=== PATIENT | female | born 1995 | race Caucasian/White ===

== ENCOUNTER 2017-08-23 12:58 | Emergency (ER) | payer SELFPAY ==
--- NOTE | 2017-08-23 16:20 | Emergency Department Report ---
Chief Complaint: Abdominal Pain Stated Complaint: 7 WEEKS /SPOTTING - HPI History of Present Illness: 21 yo presents with lower abdominal pain and vaginal spotting. She was referred from OB clinic for evaluation for threatened miscarriage. Estimated due date 04/09/2018. - Exam Vital Signs: Vital Signs 08/23/17 13:18 Temperature 98.7 F Pulse Rate 76 Respiratory 16 Rate Blood Pressure 121/81 O2 Sat by Pulse 100 Oximetry MSE screening note: Focused history and physical exam performed. Due to findings the following was ordered: ED Disposition for MSE Condition: Stable Instructions: Abdominal Pain (ED)
[2017-08-23] MEDS ORDERED: TYLENOL PO ONE (16:25)
[2017-08-23 16:45] LABS: Basophils % (Auto) 0.2 % (0.0-1.8); Hematocrit 45.1 % (30.3-42.9); Hemoglobin 15.1 gm/dl (10.1-14.3); Lymphocytes # (Auto) 1.7 K/mm3 (1.2-5.4); Lymphocytes % (Auto) 13.2 % (13.4-35.0); Mean Corpuscular HGB Conc 34 % (30-34); Mean Corpuscular Hemoglobin 29 pg (28-32); Mean Corpuscular Volume 85 fl (79-97); Monocytes # (Auto) 0.8 K/mm3 (0.0-0.8); Monocytes % (Auto) 6.2 % (0.0-7.3); Platelet Count 244 K/mm3 (140-440); Red Cell Distribution Width 13.2 % (13.2-15.2)
[2017-08-23 16:58] LABS: BUN/Creatinine Ratio 25; Blood Urea Nitrogen 10 mg/dL (7-17); Hemolysis Index 29
--- NOTE | 2017-08-23 18:59 | Emergency Department Report ---
ED Female HPI - General Chief complaint: Abdominal Pain Stated complaint: 7 WEEKS /SPOTTING Time Seen by Provider: 08/23/17 18:45 Source: patient, family, EMS Mode of arrival: Ambulatory Limitations: No Limitations - History of Present Illness Initial comments: Patient presents to emergency room report that she is 7 weeks with complaints of cramping and some spotting 5 days. She denies passing any clots. She does not have any OB follow-up nor did she start care. Denies any vaginal discharge or concern for STDs. Denies any back pain. Denies any urinary burning frequency or urgency. 1 para 0. Last menstrual period was 07/06/2017. Patient says she went to clinic and they verify that she was but she's never had ultrasound. Abdominal pain is 4 out of 10 cramping or pelvic area. No medication taken. She denies any fever or chills. Onset/Timin -: days(s) Location: suprapubic Radiation: non-radiating Severity: mild Severity scale (0 -10): 4 Quality: cramping Consistency: intermittent Improves with: none Worsens with: none Are you Now?: Yes (7 weeks) Last Menstrual Period: 07/06/17 EDC: 04/12/18 Associated Symptoms: vaginal bleeding, abdominal pain. denies: vaginal discharge, nausea/vomiting, fever/chills, headaches, loss of appetite, dysuria, hematuria, rash, seizure, shortness of breath, syncope, weakness - Related Data Sexually active: Yes (with has been) : 1 Para: 0 Previous Rx's Medication Instructions Recorded Last Taken Type Nitrofurantoin Monohyd/M-Cryst 100 mg PO Q12H 7 Days #14 capsule 08/23/17 Unknown Rx [Macrobid 100 mg Capsule] 21/Iron Fu/Folic Acid 1 each PO QDAY 30 Days #30 tablet 08/23/17 Unknown Rx [ Complete Caplet] metroNIDAZOLE [Vandazole GEL] 10 applicator VG QHS 7 Days #7 08/23/17 Unknown Rx gel.[email or web address] Allergies Allergy/AdvReac Type Severity Reaction Status Date / Time No Known Allergies Allergy Verified 08/23/17 13:18 ED Review of Systems ROS: Stated complaint: 7 WEEKS /SPOTTING Other details as noted in HPI Comment: All other systems reviewed and negative Constitutional: no symptoms reported Eyes: denies: eye pain, eye discharge ENT: denies: throat pain Respiratory: no symptoms reported Cardiovascular: denies: chest pain, palpitations, dyspnea on exertion, edema, syncope, paroxysmal nocturnal dyspnea Gastrointestinal: abdominal pain. denies: nausea, vomiting, diarrhea, constipation, hematemesis, melena, hematochezia Genitourinary: hematuria, abnormal menses, other (vaginal spotting). denies: urgency, dysuria, frequency, discharge, dyspareunia Musculoskeletal: denies: back pain, joint swelling, arthralgia, myalgia Skin: denies: rash Neurological: denies: headache, weakness, numbness, paresthesias, confusion, abnormal gait, vertigo ED Past Medical Hx - Past Medical History Previous Medical History?: No - Surgical History Past Surgical History?: No - Family History Family history: no significant - Social History Smoking Status: Never Smoker Substance Use Type: None - Medications Home Medications: Home Medications Medication Instructions Recorded Confirmed Last Taken Type Nitrofurantoin Monohyd/M-Cryst 100 mg PO Q12H 7 Days #14 capsule 08/23/17 Unknown Rx [Macrobid 100 mg Capsule] 21/Iron Fu/Folic Acid 1 each PO QDAY 30 Days #30 tablet 08/23/17 Unknown Rx [ Complete Caplet] metroNIDAZOLE [Vandazole GEL] 10 applicator VG QHS 7 Days #7 08/23/17 Unknown Rx gel.w.[email or web address] ED Physical Exam - General Limitations: No Limitations General appearance: alert, in no apparent distress - Head Head exam: Present: atraumatic, normocephalic, normal inspection - Eye Eye exam: Present: normal appearance, PERRL, EOMI Pupils: Present: normal accommodation - ENT ENT exam: Present: normal exam, normal orophraynx, mucous membranes moist, TM's normal bilaterally (no C-spine tenderness) - Neck Neck exam: Present: normal inspection, full ROM, other. Absent: tenderness, meningismus, lymphadenopathy, thyromegaly - Respiratory Respiratory exam: Present: normal lung sounds bilaterally. Absent: respiratory distress, chest wall tenderness, accessory muscle use - Cardiovascular Cardiovascular Exam: Present: regular rate, normal rhythm, normal heart sounds. Absent: systolic murmur, diastolic murmur - GI/Abdominal GI/Abdominal exam: Present: soft, normal bowel sounds. Absent: distended, tenderness, guarding, rebound, rigid, organomegaly, mass, bruit, pulsatile mass , hernia - External exam: Present: normal external exam. Absent: erythema, swelling, lesions, lacerations, ecchymosis, bleeding Speculum exam: Present: vaginal discharge, cervical discharge, vaginal bleeding. Absent: normal speculum exam, erythema, foreign body, tissue, laceration Bi-manual exam: Present: uterine enlargement. Absent: normal bi-manual exam, cervical motion tendernes, adnexal tenderness, adnexal mass, uterine tenderness - Expanded Exam Expanded Female exam: Absent: vaginal laceration, tissue present in vagina, herpetic lesions, vulvar erythema, vulvar tenderness, foreign body External exam: Present: normal Amniotic fluid: Present: none Speculum exam: Present: cervical OS closed, vaginal bleeding, vaginal discharge - Extremities Exam Extremities exam: Present: normal inspection, full ROM, normal capillary refill , other (no clubbing, cyanosis or edema. +2 pulses to all extremities and no neurovascular compromise). Absent: tenderness, pedal edema, joint swelling, calf tenderness - Back Exam Back exam: Present: normal inspection, full ROM, other (ambulates without any difficulties). Absent: tenderness, CVA tenderness (R), CVA tenderness (L), muscle spasm, paraspinal tenderness, vertebral tenderness, rash noted - Neurological Exam Neurological exam: Present: alert, oriented X3, normal gait, reflexes normal. Absent: motor sensory deficit - Psychiatric Psychiatric exam: Present: normal affect, normal mood - Skin Skin exam: Present: warm, dry, intact, normal color. Absent: rash ED Course Vital Signs 08/23/17 08/23/17 08/23/17 13:18 16:28 17:03 Temperature 98.7 F Pulse Rate 76 Respiratory 16 18 18 Rate Blood Pressure 121/81 O2 Sat by Pulse 100 18 L Oximetry 08/23/17 17:28 Temperature Pulse Rate Respiratory 18 Rate Blood Pressure O2 Sat by Pulse Oximetry - Reevaluation(s) Reevaluation #1: 08/23/17 23:09 Patient received IV fluids 1 L normal saline in emergency room, she is able to tolerate oral liquids without any difficulties. She received Reglan 10 mg IV And Tylenol 1 g by mouth. Patient denies any abdominal pain and her abdominal exam remains normal ED Medical Decision Making - Lab Data Result diagrams: 08/23/17 16:29 08/23/17 16:29 Lab Results 08/23/17 08/23/17 08/23/17 Range/Units 16:29 16:29 16:29 WBC 12.6 H (4.5-11.0) K/mm3 RBC 5.30 H (3.65-5.03) M/mm3 Hgb 15.1 H (10.1-14.3) gm/dl Hct 45.1 H (30.3-42.9) % MCV 85 (79-97) fl MCH 29 (28-32) pg MCHC 34 (30-34) % RDW 13.2 (13.2-15.2) % Plt Count 244 (140-440) K/mm3 Lymph % (Auto) 13.2 L (13.4-35.0) % [place] % (Auto) 6.2 (0.0-7.3) % Eos % (Auto) 0.0 (0.0-4.3) % Baso % (Auto) 0.2 (0.0-1.8) % Lymph # 1.7 (1.2-5.4) K/mm3 [place] # 0.8 (0.0-0.8) K/mm3 Eos # 0.0 (0.0-0.4) K/mm3 Baso # 0.0 (0.0-0.1) K/mm3 Seg Neutrophils % 80.4 H (40.0-70.0) % Seg Neutrophils # 10.2 H (1.8-7.7) K/mm3 Sodium 134 L (137-145) mmol/L Potassium 3.7 (3.6-5.0) mmol/L Chloride 95.2 L (98-107) mmol/L Carbon Dioxide 22 (22-30) mmol/L Anion Gap 21 mmol/L BUN 10 (7-17) mg/dL Creatinine 0.4 L (0.7-1.2) mg/dL Estimated GFR > 60 ml/min BUN/Creatinine Ratio 25 % Glucose 78 (65-100) mg/dL Calcium 9.0 (8.4-10.2) mg/dL HCG, Quant 54452 H (0-4) mIU/mL Urine Color (Yellow) Urine Turbidity (Clear) Urine pH (5.0-7.0) Ur Specific [place] (1.003-1.030) Urine Protein (Negative) mg/dL Urine Glucose (UA) (Negative) mg/dL Urine Ketones (Negative) mg/dL Urine Blood (Negative) Urine Nitrite (Negative) Urine Bilirubin (Negative) Urine Urobilinogen (<2.0) mg/dL Ur Leukocyte Esterase (Negative) Urine WBC (Auto) (0.0-6.0) /HPF Urine RBC (Auto) (0.0-6.0) /HPF U Epithel Cells (Auto) (0-13.0) /HPF Urine Mucus /HPF Blood Type 08/23/17 08/23/17 Range/Units 16:29 19:07 WBC (4.5-11.0) K/mm3 RBC (3.65-5.03) M/mm3 Hgb (10.1-14.3) gm/dl Hct (30.3-42.9) % MCV (79-97) fl MCH (28-32) pg MCHC (30-34) % RDW (13.2-15.2) % Plt Count (140-440) K/mm3 Lymph % (Auto) (13.4-35.0) % [place] % (Auto) (0.0-7.3) % Eos % (Auto) (0.0-4.3) % Baso % (Auto) (0.0-1.8) % Lymph # (1.2-5.4) K/mm3 [place] # (0.0-0.8) K/mm3 Eos # (0.0-0.4) K/mm3 Baso # (0.0-0.1) K/mm3 Seg Neutrophils % (40.0-70.0) % Seg Neutrophils # (1.8-7.7) K/mm3 Sodium (137-145) mmol/L Potassium (3.6-5.0) mmol/L Chloride (98-107) mmol/L Carbon Dioxide (22-30) mmol/L Anion Gap mmol/L BUN (7-17) mg/dL Creatinine (0.7-1.2) mg/dL Estimated GFR ml/min BUN/Creatinine Ratio % Glucose (65-100) mg/dL Calcium (8.4-10.2) mg/dL HCG, Quant (0-4) mIU/mL Urine Color Red (Yellow) Urine Turbidity Hazy (Clear) Urine pH 5.0 (5.0-7.0) Ur Specific [place] 1.045 H (1.003-1.030) Urine Protein >500 (Negative) mg/dL Urine Glucose (UA) Neg (Negative) mg/dL Urine Ketones 80 (Negative) mg/dL Urine Blood Lg (Negative) Urine Nitrite Neg (Negative) Urine Bilirubin Neg (Negative) Urine Urobilinogen 4.0 (<2.0) mg/dL Ur Leukocyte Esterase Mod (Negative) Urine WBC (Auto) 136.0 H (0.0-6.0) /HPF Urine RBC (Auto) > 182.0 (0.0-6.0) /HPF U Epithel Cells (Auto) 30.0 H (0-13.0) /HPF Urine Mucus 3+ /HPF Blood Type O POSITIVE Urine culture pending - Radiology Data Radiology results: report reviewed Ultrasound transvaginal reports patient with single live intrauterine gestation at 6 weeks and 6 days with estimated due date at 04/12/2018. Sonographic findings correlate well with last menstrual period heart tone is that 127 bpm. Left ovary with 2.4 cm complex cyst and right ovary normal. There is no complex avascular collection in the cervix. There is no ring of fire to suggest ectopic . Moderate free fluid in cul-de-sac which could represent blood. No implantation bleed or subchorionic collection notified. - Medical Decision Making ED course: Patient reports that she was 7 weeks with spotting for 5 days and abdominal pain. Urinalysis reveal patient with large amount of blood, positive white blood cells and positive leukocyte Estrace with CBC showing mild elevation in white blood cell which shifted to the left otherwise stable. BMP is stable. Patient had pelvic exam done and wet prep show greater than 20% clue cells otherwise no trichomoniasis or yeast. Gonorrhea and chlamydia pending. All results was explained to patient and she voiced understanding. I also explained to her that her ultrasound showed that she is 6 weeks and 6 days that is in her uterus and that she has a complex cyst on her left ovary and also heart tone has identified and is at 127 bpm. I discussed with her that this is still considered a threatened miscarriage because of bleeding and abdominal pain. I discussed with her that she needs to follow-up with CLINICAL TRIAL COORDINATOR and I will refer to my CLINICAL TRIAL COORDINATOR who was relays draftsperson jennifer. He told her to call to schedule an appointment for visits and let them know she was in the emergency room with vaginal bleeding today. Patient voiced understanding the discharge instruction treatment plan and need to follow-up. She was given 1 L of IV fluid normal saline in the emergency room, Rocephin 1 g IV and Reglan 10 mg IV. I also discussed patient that her urine shows that she has large amount of ketone and she needs to increase her fluid intake to 2-3 L of liquid per day and also she has greater than 500 glucose in her urine and will need to be monitored since this is considered high risk for . Patient denies that she is diabetic or with hypertension. Her vital signs are stable and she is a febrile and she reports that she is feeling a lot better. Patient discharged home a prescription for Macrobid, MetroGel suppository for bacterial vaginosis and vitamin. Critical care attestation.: If time is entered above; I have spent that time in minutes in the direct care of this critically ill patient, excluding procedure time. ED Disposition Clinical Impression: Acute cystitis with hematuria, Threatened , Vaginal bleeding affecting early , Dehydration during , Bacterial vaginosis Abdominal pain during Qualifiers: Trimester: first trimester Qualified Code(s): O26.891 - Other specified related conditions, first trimester; R10.9 - Unspecified abdominal pain; R10.9 - Unspecified abdominal pain Proteinuric hypertension of Qualifiers: Trimester: unspecified trimester Qualified Code(s): O14.90 - Unspecified pre- eclampsia, unspecified trimester Disposition: DC-01 TO HOME OR SELFCARE Is pt being admited?: No Does the pt Need Aspirin: No Condition: Stable Instructions: Urinary Tract Infection in Women (ED), Abdominal Pain in (ED), Threatened Miscarriage (ED), Dehydration (ED), Pre-eclampsia and Eclampsia (ED), Bacterial Vaginosis (ED), How to Take a Blood Pressure (ED) Additional Instructions: Please call CLINICAL TRIAL COORDINATOR as instructed and scheduled appointment. you have Large amount of protein in urine and will need to be monitored closely as this can cause you to have a condition such as eclampsia or preeclampsia See discharge instruction paperwork for details on these conditions Take Macrobid for urinary tract infection and MetroGel for bacterial vaginosis You will need to have repeat urinalysis done after you complete your antibiotic Take vitamin and take with food to prevent nausea Please take your blood pressure daily and recording a log and a few blood pressure is 140/90 and above please call your CLINICAL TRIAL COORDINATOR to reports Increasing her fluid intake as you are drinking for 2 and you have a urinary tract infection which will help to flush your bladder out If you develop repeated bleeding, increase in abdominal pain, please return to the emergency room otherwise follow-up as instructed Prescriptions: metroNIDAZOLE [Vandazole GEL] 10 applicator VG QHS 7 Days #7 gel.w.[email or web address] Nitrofurantoin Monohyd/M-Cryst [Macrobid 100 mg Capsule] 100 mg PO Q12H 7 Days # 14 capsule 21/Iron Fu/Folic Acid [ Complete Caplet] 1 each PO QDAY 30 Days #30 tablet Referrals: [facility] [Primary Care Provider] - 08/27/17 [facility] [Provider [facility]] - 08/24/17 Forms: STI Treatment and Prevention, Accompanied Note, Work/School Release Form (ED)
--- NOTE | 2017-08-23 19:57 | Ultrasound Report ---
FINAL REPORT EXAM: US OB < = 14 WEEKS FETUS HISTORY: threatened miscarriage LMP 07/06/2017 with estimated gestational age 6 weeks 6 days. Beta hCG [id number] TECHNIQUE: Pelvic obstetrical sonographic imaging Comparison: None FINDINGS: Transvesical and endovaginal pelvic sonographic imaging was performed. Images demonstrate the retroverted uterus to measure 13.9 x 6.5 x 6.9 centimeters. Within the uterus, there is a gestational sac containing a pole and a yolk sac. By crown-rump length of 8.4 millimeters, estimated gestational age is 6 weeks 6 days with estimated due date of 04/12/2018. heart rate measures 127 beats per minute. Right ovary measures 3.0 x 2.1 x 1.2 centimeters and is sonographically normal. Left ovary measures 3.9 x 2.1 x 3.7 centimeters and contains a complex 2.4 centimeter complex cyst. There is complex avascular collection in the cervix. There is no ring of fire to suggest ectopic. There is moderate free cul-de-sac fluid. IMPRESSION: Single live intrauterine gestation at 6 weeks 6 days with estimated due date of 04/12/18. Sonographic findings correlate well with the last menstrual period. There is moderate free cul-de-sac fluid. There is heterogeneous fluid in the cervix which may represent blood products. There is no implantation bleed or subchorionic collection identified. Complex left ovarian cyst measures 2.4 centimeters. If clinically indicated, follow-up ultrasound recommended to assess for progression of any blood products or hematoma.
[2017-08-23 19:58] LABS: Bilirubin,Urine NEG (Negative); Blood,Urine LG (Negative); Color,Urine Red (Yellow); Mucus,Urine 3+ /HPF; Nitrite,Urine NEG (Negative); Protein,Urine >500 mg/dL (Negative); RBC,Urine > 182.0 /HPF (0.0-6.0)
--- NOTE | 2017-08-23 19:58 | Ultrasound Report ---
FINAL REPORT EXAM: US OB TRANSVAGINAL HISTORY: threatened miscarriage threatened miscarriage LMP 07/06/2017 with estimated gestational age 6 weeks 6 days. Beta hCG [id number] TECHNIQUE: Obstetrical sonographic imaging Comparison: None FINDINGS: Transvesical and endovaginal pelvic sonographic imaging was performed. Images demonstrate the retroverted uterus to measure 13.9 x 6.5 x 6.9 centimeters. Within the uterus, there is a gestational sac containing a pole and a yolk sac. By crown-rump length of 8.4 millimeters, estimated gestational age is 6 weeks 6 days with estimated due date of 04/12/2018. heart rate measures 127 beats per minute. Right ovary measures 3.0 x 2.1 x 1.2 centimeters and is sonographically normal. Left ovary measures 3.9 x 2.1 x 3.7 centimeters and contains a complex 2.4 centimeter complex cyst. There is complex avascular collection in the cervix. There is no ring of fire to suggest ectopic. There is moderate free cul-de-sac fluid. IMPRESSION: Single live intrauterine gestation at 6 weeks 6 days with estimated due date of 04/12/18. Sonographic findings correlate well with the last menstrual period. There is moderate free cul-de-sac fluid. There is heterogeneous fluid in the cervix which may represent blood products. There is no implantation bleed or subchorionic collection identified. Complex left ovarian cyst measures 2.4 centimeters. If clinically indicated, follow-up ultrasound recommended to assess for progression of any blood products or hematoma.
[2017-08-23] MEDS ORDERED: NACL 0.9% 1000 ML 1,000 ML ONE (20:43)
[2017-08-23] MEDS ORDERED: REGLAN IV ONE (20:47)
[2017-08-23] MEDS ORDERED: NACL 0.9% 1000 ML 1,000 ML IV ONE (20:48)
[2017-08-23 23:21] VITALS: BP 108/56
== END 2017-08-23 23:41 | disposition home or self-care (01) ==
LOC: ED 12:58
DX: O20.0 Threatened abortion (principal); O23.11 Infections of bladder in pregnancy, first trimester; O23.591 Infection of other part of genital tract in pregnancy, first trimester; O99.281 Endocrine, nutritional and metabolic diseases complicating pregnancy, first trimester; O14.90 Unspecified pre-eclampsia, unspecified trimester; Z3A.01 Less than 8 weeks gestation of pregnancy
CPT/HCPCS: 36415; 76801; 76817; 80048; 81001; 84702; 85025; 86900; 86901; 87086; 87210; 87591; 96361; 96374; 99285; J2765; J7030